=== PATIENT | female | born 1965 | race Asian ===

== ENCOUNTER 2019-05-08 07:10 | Day surgery (SDC) | payer OTHER ==
[~2019-05-08] VITALS: Ht 160 cm; Wt 65.8 kg
[~2019-05-08 07:10] MED LIST: CEFAZOLIN SOD 1 GM in D5W 50 ML IV ONE
[2019-05-08] MEDS ORDERED: LIDOCAINE 1%, 20 ML MDV 20 ML ONE (09:00)
[2019-05-08] MEDS ORDERED: LR 1,000 ML IV SCH (12:05)
[2019-05-08] MEDS ORDERED: METOCLOPRAMIDE HCL 10 MG/2 ML VIAL IVP PRN (12:15)
[2019-05-08] MEDS ORDERED: MORPHINE 4 MG/ML INJ. SYRINGE IVP PRN ×3 (12:15)
[2019-05-08] MEDS ORDERED: MEPERIDINE HCL/PF 50 MG/ML AMP IVP PRN (12:15)
[2019-05-08] MEDS ORDERED: D5/0.45 NS 1,000 ML IV SCH (12:20)
[2019-05-08] MEDS ORDERED: PHENYLEPHRINE HCL 10 MG/ML VIAL (NEOSYNEPHRINE) ONE (12:30)
[2019-05-08] MEDS ORDERED: MIDAZOLAM HCL 5 MG/ML VIAL (VERSED) IV ONE (12:30)
[2019-05-08] MEDS ORDERED: fentaNYL CITRATE 250 MCG/5 ML AMP ONE (12:30)
[2019-05-08] MEDS ORDERED: LR 1,000 ML IV.SOLN IV ONE (12:30)
[2019-05-08] MEDS ORDERED: NS IRRIG SOLN 1000 ML IR ONE (12:30)
[2019-05-08] MEDS ORDERED: ONDANSETRON HCL 4 MG/2 ML VIAL ONE (12:30)
[2019-05-08] MEDS ORDERED: METHYLENE BLUE 1 ML AMPUL INJ ONE (12:30)
[2019-05-08] MEDS ORDERED: SEVOFLURANE 15 MIN GAS INH ONE (12:30)
[2019-05-08] MEDS ORDERED: PROPOFOL 200MG/ 20ML VIAL (DIPRIVAN) IV ONE (12:30)
[2019-05-08] MEDS ORDERED: GLYCOPYRROLATE 0.2 MG/ML VIAL ONE (12:30)
[2019-05-08] MEDS ORDERED: NEOSTIGMINE METHYLSULFATE 1 MG/ML, 10 ML VIAL ONE (12:30)
[2019-05-08] MEDS ORDERED: ROCURONIUM BROMIDE 10 MG/ML (ZEMURON) ONE (12:30)
[2019-05-08 13:22] VITALS: BP_SYST 123
[2019-05-08] MEDS ORDERED: HYDROcodone/ACETAMIN 5-325 MG TAB (NORCO/ VICODIN) PO PRN ×2 (15:15)
[2019-05-08] MEDS ORDERED: HYDROmorphone 1 MG INJ. 1 MG/ML AMPUL IVP PRN (15:15)
== END 2019-05-08 15:50 | disposition home or self-care (01) ==
LOC: SDS 07:10 → SMU 07:10 → EDSTATUS 11:10 → SDS 15:50
PROVIDERS: ATTEND Colon & Rectal Surgery
DX: C50.912 Malignant neoplasm of unspecified site of left female breast (principal)
CPT/HCPCS: 19281; 19301; 38525; 78195; 88305; 88307; 88333; 88342; A9541; J0690; J2001; J2250; J2370; J2405; J2704; J2710; J3010; J3490; J7060; J7120; Q9968